=== PATIENT | male | born 1945 | race Caucasian/White ===

== ENCOUNTER 2022-12-24 08:18 | Inpatient (IN) | payer MEDICARE, OTHER ==
[~2022-12-24] VITALS: Ht 182.9 cm; Wt 88.5 kg
[2022-12-24] MEDS ORDERED: ASPIRIN E.C. 8181 MG PO (09:09)
[2022-12-24] MEDS ORDERED: NITROSTAT0.4 MG/TAB SL (09:09)
[2022-12-24] MEDS ORDERED: TOPROL XL 25MG25 MG PO (09:09)
[2022-12-24] MEDS ORDERED: SODIUM BICARBO650 MG PO (09:09)
[2022-12-24] MEDS ORDERED: PHOSPHA 250 NEU1 TAB PO (09:09)
[2022-12-24] MEDS ORDERED: TYLENOL 325MG325 MG PO (09:09)
[2022-12-24] MEDS ORDERED: ZOFRAN 4MG T4 MG/TAB PO (09:10)
[2022-12-24] MEDS ORDERED: IMODIUM 2MG CAPS2 MG PO (09:10)
[2022-12-24 11:07] VITALS: BP 152/67; PULSE 88; TEMP 97.8
[2022-12-24 17:20] VITALS: BP 127/67; PULSE 80; TEMP 98.3
--- NOTE | 2022-12-24 19:36 | NUR ---
RECEIVED CHANGE OF SHIFT REPORT FROM DAY SHIFT RN.
[2022-12-25 05:29] VITALS: BP 151/72; PULSE 67; TEMP 97.9
--- NOTE | 2022-12-25 07:06 | NUR ---
CHANGE OF SHIFT REPORT GIVEN TO DAY SHIFT RNKUN.
--- NOTE | 2022-12-25 09:57 | NUR ---
PATIENT ALERT AND ORIENTED X4. VSS. PATIENT HERE FOR FALLS. PATIENT DENIES ANY PAIN WITH THE EXCEPTION OF A SLIGHT HEADACHE. PATIENT REPORTS INABILITY TO SLEEP WELL LASTNIGHT AND ATTRIBUTES HEADACHE TO LACK OF SLEEP. PATIENT DENIES ANY FURTHER NEEDS. PATIENT RESTING IN CHAIR WAITING FOR BREAKFAST.
--- NOTE | 2022-12-25 13:45 | NUR ---
Has lack of transportation kept you from medical appts, meetings, work, or from getting things needed for daily living? NO How often do you feel lonely or isolated from those around you? RARELY Over the past 5 days, how much of the time has pain made it hard for you to sleep? NO PAIN Over the past 5 days, how often have you limited your participation in therapy due to pain? NO PAIN Over the past 5 days, how often have you limited your day-to-day activities because of pain? NO PAIN Have you had 2 or more falls in the past year or any fall with an injury? YES Did you have major surgery during the 100 days prior to admission? NO
--- NOTE | 2022-12-25 15:20 | NUR ---
SW met with the patient to complete intake and to present and review the IPR Team Conference Note. The patient lives in [place] with his , Charissa (ph#[phone]). He reports independence with ADLs and does not have any DME. The patient's PCP is Dr. Des Orlando and he obtains his medications from [facility]. The patient states he is unsure if he has a DPOA-HC. SW then addressed the IPR Team Conference Note. The team plans to re-evaluate him next Friday. The patient is in agreement to the plan and had no concerns for SW at this time.
[2022-12-25 18:14] VITALS: BP 158/70; PULSE 90; TEMP 98.1
--- NOTE | 2022-12-26 02:35 | NUR ---
PATIENT RESTING COMFORTABLY WHILE ASLEEP WITH UNLABORED RESPIRATIONS, PT DID STATE THROUGHOUT NIGHT THAT HAD A HEADACHE RATED AT A 3-4 OFFERED TYLENOL EACH TIME, PT REFUSED AND FALLS BACK ASLEEP. PATIENT ASSESSMENT DONE AT 2016 PATIETN ALERT AND ORIENTED. BRUSING NOTED ON FACE AND SIDE AND LEGS, SCAB ON RT AC AREA.
[2022-12-26 05:46] VITALS: BP 127/60; PULSE 85; TEMP 97.9
[2022-12-26 07:02] LABS: BASO % 0.3 % (0.0-2.0); EOS # 0.1 K/mm3 (0.0-0.7); EOS % 2.1 % (0.0-4.0); GRAN # 4.9 K/mm3 (1.4-6.5); GRAN % 73.4 % (42.2-75.2); LYMPH # 0.9 K/mm3 (1.2-3.4); LYMPH % 13.9 % (20.0-51.0); MEAN CELL VOLUME 90 fl (80.0-100.0); MEAN CORPUSCULAR HGB CONC 33 g/dl (33.0-37.0); MEAN PLATELET VOLUME 9.8 fl (7.4-10.4); MONO # 0.6 K/mm3 (0.1-0.6); MONO % 9.2 % (1.7-9.3); PLATELET COUNT 255 K/mm3 (130-400); RED BLOOD COUNT 2.51 M/mm3 (4.20-5.60); REDCELL DISTRIBUTION WIDTH-CV 14.3 % (11.5-14.5)
[2022-12-26 07:04] LABS: HEMATOCRIT 22.7 % (42.0-52.0); HEMOGLOBIN 7.5 g/dl (13.5-18.0); MEAN CORPUSCULAR HEMOGLOBIN 30 pg (27-31)
--- NOTE | 2022-12-26 07:04 | NUR ---
Shift report received from mini shifter RN.
[2022-12-26 07:19] LABS: CALCIUM 7.6 mg/dL (8.4-10.2); CREATININE, serum 3.94 mg/dL (0.72-1.25); POTASSIUM 3.1 mmol/L (3.5-4.5)
--- NOTE | 2022-12-26 07:57 | NUR ---
Pt awake and sitting up in bed. Denies pain/discomfort. Does not want to eat his breakfast this morning but is agreeable to try to eat some oatmeal and drink some coffee. Denies additional needs. Call light is in his reach. Bed alarm is on.
--- NOTE | 2022-12-26 08:38 | NUR ---
SBA provided as pt stood from recliner and transferred back to bed. Pt ate approx 20% of breakfast independently. 0900 medications refused. is at the bedside. Pt denies pain/discomfort. Denies toileting needs. Call light is in his reach. Bed alarm is on.
--- NOTE | 2022-12-26 12:11 | NUR ---
Pt incontinent of Lg, Loose stool while in Rehab [employer]. Pt back in room, hygiene performed. Min asst provided for lower body dressing. Pt denies abd. pain or nausea. Immodium given per PRN order. Pt sitting up in bed to eat lunch. Denies other needs. Call light is in his reach. Bed alarm is on.
--- NOTE | 2022-12-26 17:20 | NUR ---
Pt sitting up in bed to eat dinner. is the bedside. No further episodes of loose stools since earlier this afternoon. Pt continues to deny nausea or abd. pain. No general pain/discomfort. Call light is within his reach. Bed alarm is on.
[2022-12-26 18:09] VITALS: BP 168/73; PULSE 88; TEMP 98.2
--- NOTE | 2022-12-26 21:00 | NUR ---
PT AWAKE. RESTING IN BED. A&O. DENIES COUGH OR DYSPNEA. DENIES PAIN. NO NEEDS AT THIS TIME. CALL LIGHT IN REACH. BED ALARM SET.
--- NOTE | 2022-12-27 01:00 | NUR ---
PT HAS BEEN IMPULSIVE SEVERAL TIMES TO GO TO BATHROOM. REMINDED PT TO CALL STAFF TO SBA.
[2022-12-27 05:36] VITALS: BP 159/80; PULSE 105; TEMP 98.6
--- NOTE | 2022-12-27 07:10 | NUR ---
Shift report received from warehouse shift supervisor RN.
--- NOTE | 2022-12-27 08:32 | NUR ---
Pt sitting up in bed. Does not feel like eating breakfast this morning. Pt states he feels "like laying around today". OT in room to shower pt. Pt denies pain/discomfort. Denies other needs. Call light is in his reach.
--- NOTE | 2022-12-27 13:10 | NUR ---
Patient has been in a pleasant mood. States he has been more active than he wants to today. Up to go to the bathroom often. Urinating clear, yellow. Denies pain. Currently resting in bed with call light in reach.
--- NOTE | 2022-12-27 14:40 | NUR ---
Admission QIM scores were reviewed by the team. Code of 5 chosen for eating was determined by team discussion to be the most usual performance before interventions for this patient during the assessment period. Code of 3 chosen for toilet hygiene was determined by team discussion to be the most usual performance before interventions for this patient during the assessment period. Code of 3 chosen for toilet transfer was determined by team discussion to be the most usual performance before interventions for this patient during the assessment period. Code of 4 chosen for rolling left to right was determined by team discussion to be the most usual performance before interventions for this patient during the assessment period. Code of 3 chosen for sit to lying was determined by team discussion to be the most usual performance before interventions for this patient during the assessment period. Code of 4 chosen for lying to sitting on side of bed was determined by team discussion to be the most usual performance before interventions for this patient during the assessment period. Code of 2 chosen for sit to stand was determined by team discussion to be the most usual performance for this patient during the discharge assessment period. Code of 2 chosen for chair/bed to chair transfer was determined by team discussion to be the most usual performance before interventions for this patient during the assessment period. Code of 88 chosen for walk 10 feet was determined by team discussion to be the most usual performance for this patient during the discharge assessment period. Code of 88 chosen for walk 50 feet w/ 2 turns was determined by team discussion to be the most usual performance before interventions for this patient during the assessment period. Code of 88 chosen for 1 step was determined by team discussion to be the most usual performance before interventions for this patient during the assessment period.--Chiara Morillo,
[2022-12-27 18:00] VITALS: BP 159/78; PULSE 91; TEMP 99.4
--- NOTE | 2022-12-27 20:00 | NUR ---
PT RESTING IN BED. AT BEDSIDE. PT FORGETFUL BUT ORIENTED. IMPULSIVE WITH GETTING UP OUT OF BED TO GO TO BR. FREQUENT VOIDS. NORMAL FOR HIM. DENIES PT HAS A PCP. DENIES PAIN. CALL LIGHT IN REACH. BED ALARM SET.
--- NOTE | 2022-12-28 03:34 | NUR ---
PT AWAKE AND RESTLESS TONIGHT. VOIDING FREQUENTLY ALSO. DENIES PAIN.
--- NOTE | 2022-12-28 04:03 | NUR ---
PT SITTING UP; ON SIDE OF BED. BED ALARM SOUNDING. PT UNABLE TO UNDERSTAND THE BED ALARM. ENC PT TO USE CALL LIGHT AND STAFF WILL COME TO ASSIST BEFORE GETTING UP. PT VERY AGRIVATED. ASSISTED TO STAND. PT WANTS PANTS AND SOCKS OFF TO SLEEP. BACK TO BED. CALL LIGHT IN REACH. BED ALARM ON.
[2022-12-28 04:43] VITALS: BP 158/72; PULSE 100; TEMP 98.8
--- NOTE | 2022-12-28 07:13 | NUR ---
Shift report received from second shift supervisor RN.
--- NOTE | 2022-12-28 07:53 | NUR ---
SBA provided as pt ambulated to the bathroom using a FWW. Morning medications declined by the pt. Pt stated "I don't need those". Pt denies pain/discomfort. Denies abd. pain or nausea. Pt supervised as he returned to bed. Denies other needs. Call light is in his reach. Bed alarm is on.
--- NOTE | 2022-12-28 09:58 | NUR ---
Breakfast refused. Group Therapy refused. Pt resting in left side lying position in bed. Arouses easily from sleep. Denies pain or discomfort. Call light is in his reach. Bed alarm is on.
[2022-12-28 17:19] VITALS: BP 177/76; PULSE 96; TEMP 98.8
--- NOTE | 2022-12-28 18:14 | NUR ---
Pt resting supine in bed. is at the bedside. Pt ate 10-25% of lunch and dinner today. No c/o abd. pain or nausea. Pt had one medium loose stool this afternoon. Denies general pain or discomfort. Pt has expressed frustration with his bed alarm sounding when he attempts to get out of bed without calling for help. Reminded pt of the Fall Policy and to ask for help when getting out of bed. Denies other needs. Call light is in his reach. Bed alarm is on.
--- NOTE | 2022-12-28 18:42 | NUR ---
NOTIFIED NICKOLAS MARTINEZ RE: RESTLESSNESS AND AGITATION. SEE NEW ORDER.
--- NOTE | 2022-12-28 21:00 | NUR ---
PT RESTING IN BED. HERE EARLIER. VERY SUPPORTIVE. PT DENIES PAIN. FORGETFUL AND IMPULSIVE. SEEMS DEPRESSED. GETS AGITATED AT TIMES. PT DOES NOT USE CALL LIGHT. PT SITS UP AND ALARM SOUNDS WHICH MAKES PT AGITATED. UP TO BR WITH WALKER. ABLE TO MANAGE TOILETING TASKS. BACK TO BED. LIFTS LEGS INTO BED. REFUSES SCD'S. CLALL IHG TIN REACH. BED ALARM SET.
[2022-12-29 05:19] VITALS: BP 155/83; PULSE 104; TEMP 98.8
--- NOTE | 2022-12-29 08:00 | NUR ---
PATIENT AWAKE AND ALERT, RESTING IN BED. PATIENT IS VERY PLEASANT AND COOPERATIV WITH NURSING STAFF. PATIENT REFUSES BREAKFAST AT THIS TIME, STATES HE IS NOT HUNGRY. PATIENT DECLINED GETTING INTO RECLINER AND WOULD LIKE TO SLEEP MORE IN BED. BED ALARM ON, CALL LIGHT WITHIN REACH.
[2022-12-29 09:55] LABS: CALCIUM 7.8 mg/dL (8.4-10.2); CREATININE, serum 3.78 mg/dL (0.72-1.25); POTASSIUM 3.4 mmol/L (3.5-4.5)
--- NOTE | 2022-12-29 11:30 | NUR ---
TOTAL BED CHANGE COMPLETE. PATIENT HAD ONE INCONTINENT EPISODE OF BOWL. PATIENT ASSISTED TO BATHROOM WHERE HE WAS ABLE TO CLEAN UP INDEPENDTLY WITH RN STANDING BY. PATIENT A STANDBY ASSIST BACK TO BED WITHA WALKER. PATIENTS BED ALARM ON, CALL LIGHT WITHIN REACH.
[2022-12-29 17:22] VITALS: BP 164/75; PULSE 85; TEMP 98.7
--- NOTE | 2022-12-30 00:12 | NUR ---
PT. CAN BE FORGETFUL, HAS URGENCY WHEN NEEDING TO URINATE, AND FREQUENTLY FORGETS TO USE HIS CALL LIGHT WHEN HE NEEDS TO GO TO THE BATHROOM, PT.'S BED ALARM WENT OFF, AND I WENT IN TO ASSIST HIM TO THE BATHROOM, PT. STABLE WHILE USING WALKER, AND MADE IT TO THE BATHROOM AND BACK SAFELY, REINFORCED THAT HIS CALL LIGHT IS ON HIS BEDSIDE TABLE, AND THAT HE NEEDS TO PUSH IT WHEN HE NEEDS TO GO, INSTEAD OF TRYING TO GET UP WITHOUT HELP, WILL CONTINUE TO MONITOR.
[2022-12-30 05:27] VITALS: BP 141/67; PULSE 90; TEMP 97.4
--- NOTE | 2022-12-30 09:13 | NUR ---
pt down w Theodore in PT
--- NOTE | 2022-12-30 09:52 | NUR ---
pt resting in bed, just finished with PT. reports feeling tired. meds given and assessment complete. fall precautions in place. denies needs at this time. call light in reach.
[2022-12-30 17:44] VITALS: BP 134/59; PULSE 80; TEMP 98
--- NOTE | 2022-12-31 04:55 | NUR ---
PT ASSESSED AT 2035 ALERT AND ORIENTED, RESTING IN BED IN LOWEST POSITION WITH FALL ALARM ON. PATIENT HAD NO PAIN AT THIS TIME. PATIENT RESTED COMFORTABLY WHILE SETTING OFF FALL ALARM X3 OVER NIGHT TO USE RESTROOM. PT WOULD RETURN TO BED WIITH ALARM SET RESTING COMFORABLY.
[2022-12-31 05:41] VITALS: BP 159/75; PULSE 93; TEMP 98.2
--- NOTE | 2022-12-31 07:01 | NUR ---
Shift report received from host/hostess RN.
--- NOTE | 2022-12-31 10:34 | NUR ---
Phone call received from patients concerned that she received a phone call from her yesterday stating that a "lady from [employer] came to vist him yesterday" and that he could only describe her as a " little girl". SW assured patients that the hospital does not let any insurance company visit patients while here, but that i would discuss with the IPR director to investigate. Kristina reports that she will be up to visit her after 1400 due to scheduled appointments this morning. IPR director Rosy notified
--- NOTE | 2022-12-31 12:34 | NUR ---
Pt sitting up in the recliner talking to his on the phone. He ate approx 10% of lunch independently, breakfast was refused. He denies abd. pain or nausea. Denies general pain/discomfort. Call light is in his reach. Chair alarm is on.
[2022-12-31 17:35] VITALS: BP 129/60; PULSE 83; TEMP 98.4
--- NOTE | 2023-01-01 04:15 | NUR ---
PT ASSESSED AT 1946 WITH AT BEDSIDE. PT RESTING COMFORTABLY IN BED VSS, NO COMPLAINT OF PAIN, PTS NIGHT TIME MEDS ALSO GIVEN, OFFERED SEOQUEL BUT PT DECLINED.
[2023-01-01 05:08] VITALS: BP 133/61; PULSE 79; TEMP 98.8
[2023-01-01 07:05] LABS: BASO % 0.8 % (0.0-2.0); EOS # 0.1 K/mm3 (0.0-0.7); EOS % 1.9 % (0.0-4.0); GRAN # 2.9 K/mm3 (1.4-6.5); GRAN % 60.1 % (42.2-75.2); LYMPH # 1.2 K/mm3 (1.2-3.4); LYMPH % 24.5 % (20.0-51.0); MEAN CELL VOLUME 92 fl (80.0-100.0); MEAN CORPUSCULAR HGB CONC 33 g/dl (33.0-37.0); MEAN PLATELET VOLUME 9.9 fl (7.4-10.4); MONO # 0.6 K/mm3 (0.1-0.6); MONO % 12.3 % (1.7-9.3); PLATELET COUNT 167 K/mm3 (130-400); RED BLOOD COUNT 2.61 M/mm3 (4.20-5.60); REDCELL DISTRIBUTION WIDTH-CV 13.7 % (11.5-14.5)
[2023-01-01 07:06] LABS: HEMOGLOBIN 7.8 g/dl (13.5-18.0); MEAN CORPUSCULAR HEMOGLOBIN 30 pg (27-31)
--- NOTE | 2023-01-01 07:07 | NUR ---
Shift report received from warehouse worker 2nd shift RN.
[2023-01-01 07:19] LABS: CREATININE, serum 3.46 mg/dL (0.72-1.25); POTASSIUM 3.3 mmol/L (3.5-4.5)
--- NOTE | 2023-01-01 09:15 | NUR ---
Pt back in room after PT. He is sitting up in the recliner. Denies pain or discomfort. Denies nausea or abd. pain. Pt denies other needs. Call light is in his reach. Chair alarm is on.
[2023-01-01 17:27] VITALS: BP 166/81; PULSE 90; TEMP 98.3
--- NOTE | 2023-01-01 20:00 | NUR ---
PT HAS SET THE BED ALARM OFF TWICE. PT FRUSTRATED WITH BED ALARM. PT DOESN'T REMEMBER TO USE CALL LIGHT. SHIFT ASSESSMENT COMPLETED. ACCORDING TO K+ PROTOCOL K+ NEEDS TO BE DRAWN 3HR POST LAST DOSE EFFER K. ORDERED K+ FOR 2029. PT TO SINK TO DO OWN MOUTH CARE. BACK TO BED. CALL LIGHT IN REACH. BED ALARM SET.
--- NOTE | 2023-01-01 21:38 | NUR ---
PT CONFUSED TONIGHT. HAS SET OFF BED ALARM AT LEAST 6-7 TIMES IN THE LAST HOUR. REVIEWED CALL LIGHT- [place], WAIT TILL STAFF COMES IN BEFORE GETTING UP EACH TIME PT GETS UP. PT VERY AGITATED. AFTER REVIEWING CALL LIGHT AND BED ALARM PT ASKS "WHAT CAN WE DO TO STOP THE NOISE WHEN I GET UP TO THE BR?".
--- NOTE | 2023-01-01 21:58 | NUR ---
PT STILL VERY AGITATED ABOUT BED ALARM. FOLLOW UP K+ 3.6. PT REFUSING EFFER K PER PROTOCOL. NOTIFIED RL MARTINEZ.
--- NOTE | 2023-01-01 23:58 | NUR ---
BED ALARM SOUNDING. PT CONFUSED WHY ALARM IS ON. ASSTED TO BR WITH WHEELED WALKER. BACK TO BED. CALL LIGHT IN REACH. BED ALARM SET.
--- NOTE | 2023-01-02 01:14 | NUR ---
BED ALARM SOUNDING. PT SITTING ON SIDE OF BED. ASSISTED PT TO BR SBA W WALKER. BACK TO BED. CALL LIGHT IN REACH. BED ALARM SET.
--- NOTE | 2023-01-02 04:14 | NUR ---
BED ALARM SOUNDING. SITTING ON SIDE OF BED. SBA WITH WALKER TO BR. BACK TO BED.
[2023-01-02 05:32] VITALS: BP 158/74; PULSE 91; TEMP 97.8
--- NOTE | 2023-01-02 06:45 | NUR ---
shift report received from MANUEL Riddle
--- NOTE | 2023-01-02 07:05 | NUR ---
attempted to give him his am meds and he refuses at this time, he states he didn't get any sleep last night and wants to sleep, declines breakfast also, made agreement with him that he could sleep until 815 then would wake him for meds and assessment before therapy at 830, he is in agreement with this
--- NOTE | 2023-01-02 08:05 | NUR ---
awakened independently and sitting up on side of bed and has had some breakfast, am meds given and full assessment compelted, see interventions for further info, denies needs at this time
--- NOTE | 2023-01-02 08:43 | NUR ---
occupational therapist in working with patient
--- NOTE | 2023-01-02 09:00 | NUR ---
returned to room with therapy, family in to visit and have family meeting
--- NOTE | 2023-01-02 09:35 | NUR ---
Family meeting conducted w/ pt, , son, & [id number]. Also present was the PT, OT, ST, & institutional research director/SW. The team talked about how pt has progressed from a functional standpoint. Pt & family stated they understood & agreed w/. Informed them of d/c still being set for 01/03/23 w/ recommendations for home health PT/OT/ST. The family had a few questions which the team answered.
--- NOTE | 2023-01-02 11:29 | NUR ---
remains up in recliner, denies needs
--- NOTE | 2023-01-02 12:30 | NUR ---
Late Entry from 01-01-23 Candy Wrapping Machine Operator collaborated with treatment team in the AM to conduct a case review for Patient referencing treatment progress, needs, barreiers, and discharge. Patient is assessed to be progressing with treatment. Needs: Patient will need to be established with Home health services prior to discahrge. Home Health list of providers were provided to Patient, two of which can meet Patient needs for PT/OT/ST. Pstient would like to wait until Family Meeting to select Home Health Provider. Walker: Patient will need a walker prior to discharge. Barriers: No barriers assessed at this time. Discharge: Anticipated discharge date of 01-03-23. Request for family meeting 01-02-23 at 0930 Candy Wrapping Machine Operator met with Patient and to review treatment team notes. SW collaborated with Patient and to review progress referencing evaluation as well s current assessed activities for treatment. Family meeting scheduled for 01-02-23 at 0915.
--- NOTE | 2023-01-02 12:35 | NUR ---
chair alarm sounding, entered room, assisted him out of recliner and into bed to take a nap before afternoon t herapy
--- NOTE | 2023-01-02 14:09 | NUR ---
Has lack of transportation kept you from medical appts, meetings, work, or from getting things needed for daily living? NO How often do you feel lonely or isolated from those around you? NEVER Over the past 5 days, how much of the time has pain made it hard for you to sleep? RARELY OR NOT AT ALL Over the past 5 days, how often have you limited your participation in therapy due to pain? RARELY OR NOT AT ALL Over the past 5 days, how often have you limited your day-to-day activities because of pain? RARELY OR NOT AT ALL
--- NOTE | 2023-01-02 14:24 | NUR ---
director social in to see patient, the patient is in bed and ready to try and take anap
--- NOTE | 2023-01-02 15:19 | NUR ---
Meeting Facilitator collaborated with Dr. Graham to complete DME order. completed packet was sent to [facility] with a request for delivery to Patient's room today. Meeting Facilitator met with Patient, , and son post family meeting to discuss home health providers as well as DME required for discharge. SW reported to family that DME, 4WW was ordered and requested to arrive by end of day. SW reviewed provided home health list with family who selected [facility] home health service as they provide PT/OT/ST. SW will follow referral. KADEN contacted PCP office [facility] on Patient's request for new PCP. [facility] reports to accept Patient and requests Patient contact them to provide all information neccisary for establishing PCP.
--- NOTE | 2023-01-02 15:51 | NUR ---
in bed and appears to be sleeping, resp quiet and easy
--- NOTE | 2023-01-02 16:15 | NUR ---
report given to MANUEL Mathews
[2023-01-02 17:29] VITALS: BP 163/80; PULSE 76; TEMP 98.1
--- NOTE | 2023-01-02 21:00 | NUR ---
BED ALARM SOUNDING. PT UP IN BR PER SELF. REFUSING TO USE CALL LIGHT. DENIES PAIN. HAD BM TODAY. DENIES NEEDS. CALL LIGHT IN REACH. BED ALARM SET.
[2023-01-03 05:34] VITALS: BP 134/62; PULSE 84; TEMP 98.3
--- NOTE | 2023-01-03 06:41 | NUR ---
Shift report received from shelter supervisor RN.
--- NOTE | 2023-01-03 08:18 | NUR ---
Pt resting in left side lying position in bed. He is independent w/ bed mobility. Breakfast was eaten independently. He is looking forward to discharging home later this morning. He denies pain or discomfort. Denies other needs. Call light is in his reach. Bed alarm is on.
[2023-01-03] MEDS ORDERED: FERRO-TIME325 MG PO (09:05)
[2023-01-03] MEDS ORDERED: TOPROL XL 25MG25 MG PO (09:06)
[2023-01-03] MEDS ORDERED: NITROSTAT0.4 MG/TAB SL (09:06)
[2023-01-03] MEDS ORDERED: ASPIRIN E.C. 8181 MG PO (09:06)
[2023-01-03] MEDS ORDERED: PHOSPHA 250 NEU1 TAB PO (09:06)
[2023-01-03] MEDS ORDERED: SODIUM BICARBO650 MG PO (09:07)
--- NOTE | 2023-01-03 12:17 | NUR ---
Pt sitting up on the side of the bed. He reports that he "kind of does not feel well". He reports having slight left sided chest pain "a bit ago" and denies chest pain currently. Denies shortness of breath, chest tightness, difficulty breathing. Denies abd. pain, nausea when asked if he thought his Crohn's hx was causing discomfort. Pt denied Zofran and denied Nitroglycerin. Pt stated the Nitroglycerin "never works anyway" and "I'm the big baby that doesn't like to take medicine". Advised to pt to notify the nurse if his chest pain returns. Will continue to monitor.
--- NOTE | 2023-01-03 12:22 | NUR ---
Staffing R[facility]. Patient requested to schedule home health themselves. Carolina agreed to contact Patient to schedule first appointment. KADEN follow-ed up with Patient to ensure delivery of 4WW from [facility]. Patient recieved walker last evening.
--- NOTE | 2023-01-03 12:39 | NUR ---
Pt resting supine in bed. He denies chest pain, shortness of breath, chest tightness, abd. pain, or nausea. He is still waiting for his to arrive for his discharge. Pt denies any needs. Call light is in his reach. Bed alarm is on. Will continue to monitor.
--- NOTE | 2023-01-03 12:48 | NUR ---
Tank Setter contacte Patient , Charissa, to report updates with PCP at [facility]. Patient states that Charissa can coordinate PCP for him. Charissa states that she now does not want Patient to see Tamir Grayson. Patient reports that after speaking with Carolina , she [facility] SW contacted [facility] in reference to continued non-established PCP. Lawrence with [facility] agreed to speak with her team to work with Patient in establishing PCP.
--- NOTE | 2023-01-03 13:23 | NUR ---
Discharge summary reviewed with the pt and his . Discussed upcoming appointments and home medications. They had no further questions. Belongings were gathered by the . Pt ambulated off unit with rolling walker accompanied by RN and professional nursing tutor.
--- NOTE | 2023-01-03 13:44 | NUR ---
Discharge QIM scores were reviewed by the team. Code of 6 chosen for toilet hygiene was determined by team discussion to be the most usual performance for this patient during the discharge assessment period. Code of 6 chosen for toilet transfer was determined by team discussion to be the most usual performance for this patient during the discharge assessment period. Code of 6 chosen for walk 10 feet was determined by team discussion to be the most usual performance for this patient during the discharge assessment period. Code of 6 chosen for walk 50 feet w/ 2 turns was determined by team discussion to be the most usual performance before interventions for this patient during the discharge assessment period. Code of 6 chosen for walk 150 feet was determined by team discussion to be the most usual performance for this patient during the discharge assessment period. Code of 6 chosen for walk 10 feet on uneven surface was determined by team discussion to be the most usual performance for this patient during the discharge assessment period. Code of 6 chosen for 1 step was determined by team discussion to be the most usual performance for this patient during the discharge assessment period.--Chiara Morillo, PD
--- NOTE | 2023-01-03 14:49 | NUR ---
Neurology Technologist faxed sischarge packet to [facility].
== END 2023-01-03 13:30 | disposition home health service (06) | DRG 557 ==
PROVIDERS: Internal Medicine; ADMIT Physical Medicine & Rehabilitation Sports Medicine
DX: M62.82 Rhabdomyolysis (principal); I21.A1 Myocardial infarction type 2; G93.40 Encephalopathy, unspecified; K50.90 Crohn's disease, unspecified, without complications; N17.9 Acute kidney failure, unspecified; M62.81 Muscle weakness (generalized); S09.90XD Unspecified injury of head, subsequent encounter; W06.XXXD Fall from bed, subsequent encounter; R26.89 Other abnormalities of gait and mobility; D64.89 Other specified anemias; M79.81 Nontraumatic hematoma of soft tissue; R19.7 Diarrhea, unspecified; M25.551 Pain in right hip; E87.6 Hypokalemia; R79.1 Abnormal coagulation profile; Z86.16 Personal history of COVID-19; Z74.09 Other reduced mobility; Z79.899 Other long term (current) drug therapy; Z79.82 Long term (current) use of aspirin; R15.9 Full incontinence of feces
CPT/HCPCS: A9284

== ENCOUNTER 2023-09-30 17:23 | Inpatient (IN) | payer MEDICARE, OTHER ==
[~2023-09-30] VITALS: Ht 182.9 cm; Wt 89.6 kg
[~2023-09-30 17:23] MED LIST: ASPIRIN E.C. 8181 MG PO; FERRO-TIME325 MG PO; IMODIUM 2MG CAPS2 MG PO; NITROSTAT0.4 MG/TAB SL; PHOSPHA 250 NEU1 TAB PO; SODIUM BICARBO650 MG PO; TOPROL XL 25MG25 MG PO; TYLENOL 325MG325 MG PO; ZOFRAN 4MG T4 MG/TAB PO
[2023-09-30 18:18] LABS: BASO # 0.1 K/mm3 (0.0-0.2); BASO % 0.8 % (0.0-2.0); EOS % 0.5 % (0.0-4.0); GRAN # 5.8 K/mm3 (1.4-6.5); GRAN % 75.1 % (42.2-75.2); HEMATOCRIT 42.2 % (42.0-52.0); HEMOGLOBIN 14.5 g/dl (13.5-18.0); LYMPH # 1.2 K/mm3 (1.2-3.4); LYMPH % 15.4 % (20.0-51.0); MEAN CELL VOLUME 85 fl (80.0-100.0); MEAN CORPUSCULAR HEMOGLOBIN 29 pg (27-31); MEAN CORPUSCULAR HGB CONC 34 g/dl (33.0-37.0); MEAN PLATELET VOLUME 9.5 fl (7.4-10.4); MONO # 0.6 K/mm3 (0.1-0.6); MONO % 7.8 % (1.7-9.3); PLATELET COUNT 236 K/mm3 (130-400); RED BLOOD COUNT 4.96 M/mm3 (4.20-5.60)
[2023-09-30 18:35] LABS: ALBUMIN 3.5 gm/dL (3.4-4.8); BILIRUBIN,TOTAL 0.9 mg/dL (0.2-1.2); CREATININE, serum 1.85 mg/dL (0.72-1.25); POTASSIUM 3.3 mmol/L (3.5-4.5)
[2023-09-30] MEDS ORDERED: COMBIGAN 0.2%-0.5 ML OU (19:19)
[2023-09-30] MEDS ORDERED: XALATAN EYE DROPS OU (19:19)
[2023-09-30 19:23] LABS: INR 1.1 (0.8-3.0); PROTHROMBIN TIME 11.9 SECONDS (9.7-12.8)
[2023-09-30 20:19] VITALS: BP 158/65; PULSE 62; TEMP 97.8
--- NOTE | 2023-09-30 20:20 | NUR ---
pt arrived to room 345 around 1999. pt a&o x4. admission, med rec, and physical assessment complete. pt denies pain unless moving the rle. family at bedside. bed alarm on. call light in reach. all needs met at this time.
[2023-09-30 21:00] VITALS: BP_SYST 158
[2023-09-30 22:26] LABS: COLLECTION METHOD CLEAN CATCH
[2023-09-30 22:44] LABS: URINE APPEARANCE Clear (CLEAR/HAZY); URINE COLOR Yellow (YELLOW); URINE GLUCOSE Negative (NEGATIVE); URINE PROTEIN(semi-quant) Negative (NEGATIVE)
[2023-09-30 22:45] LABS: SQUAMOUS EPITHELIAL 0-2 /hpf (0-10); URINE BACTERIA Moderate /hpf (NONE SEEN); URINE BLOOD Negative (NEGATIVE); URINE KETONE TRACE (NEGATIVE); URINE NITRATE Negative (NEGATIVE); URINE RBC 0-2 /hpf (0-2); URINE UROBILINOGEN 0.2 E.U/dL (0.2-1.0)
[2023-10-01] VITALS (19 sets, daily range): BP systolic 129–182; BP diastolic 64–90; PULSE 55–78; TEMP 97.5–98.4
--- NOTE | 2023-10-01 03:15 | NUR ---
pt accidentally pulled right ac iv out. new iv site placed in left forearm. pt tolerated well. ivf now running without issue. call light in reach. all needs met at this time.
--- NOTE | 2023-10-01 05:37 | NUR ---
pt ripped out newly placed iv. iv attempts did not work. waiting for powerhouse mechanic supervisor to place new iv. pt tolerated well. bed alarm on. call light in reach. all needs met at this time.
[2023-10-01 06:43] LABS: BASO % 0.5 % (0.0-2.0); EOS # 0.1 K/mm3 (0.0-0.7); EOS % 1.4 % (0.0-4.0); GRAN # 6.6 K/mm3 (1.4-6.5); GRAN % 74.1 % (42.2-75.2); HEMATOCRIT 40.6 % (42.0-52.0); HEMOGLOBIN 13.9 g/dl (13.5-18.0); LYMPH # 1.2 K/mm3 (1.2-3.4); LYMPH % 13.3 % (20.0-51.0); MEAN CELL VOLUME 84 fl (80.0-100.0); MEAN CORPUSCULAR HEMOGLOBIN 29 pg (27-31); MEAN CORPUSCULAR HGB CONC 34 g/dl (33.0-37.0); MEAN PLATELET VOLUME 10.1 fl (7.4-10.4); MONO # 0.9 K/mm3 (0.1-0.6); MONO % 10.5 % (1.7-9.3); PLATELET COUNT 246 K/mm3 (130-400); RED BLOOD COUNT 4.81 M/mm3 (4.20-5.60); REDCELL DISTRIBUTION WIDTH-CV 13.5 % (11.5-14.5)
[2023-10-01 06:59] LABS: ALBUMIN 3.4 gm/dL (3.4-4.8); BILIRUBIN,TOTAL 1.2 mg/dL (0.2-1.2); CALCIUM 8.8 mg/dL (8.4-10.2); CREATININE, serum 1.71 mg/dL (0.72-1.25); POTASSIUM 3.2 mmol/L (3.5-4.5); TOTAL PROTEIN 6.6 gm/dL (6.2-8.1)
--- NOTE | 2023-10-01 10:29 | NUR ---
Initial visit; Patient thanked Bankruptcy Legal Assistant for stopping and visiting. He states he is to have surgery today and thanked Bankruptcy Legal Assistant for keeping him in her prayers and offering God's blessings this morning.
[2023-10-01] MEDS ORDERED: CYANOCOBAL1000 MCG/1 SQ (10:49)
--- NOTE | 2023-10-01 11:17 | NUR ---
PATIENT ALERT TO SELF AND INTERMITTENTLY CONFUSED TO TIME/PLACE/SITUATION. PATIENT HAS REMOVED 4 IV'S AND ATTEMPTING TO GET OUT OF BED MULTIPLE TIMES. PATIENT ORIENTED TO PLACE AND SITUATION AFTER EVERY ATTEMPT TO LEAVE BED. PATIENT REMINDED THAT HE IS NPO, ON BEDREST FOR UPCOMING SURGERY AND IV CANNOT BE REMOVED. ORAL POTASSIUM GIVEN WITH A SIP OF WATER. NEW IV STARTED IN RIGHT FA, IV MAG ADMINISTERED. IV WRAPPED WITH MARIELA BANDAGE. IV MORPHINE ADMINISTERED ALONG WITH ONE TIME DOSE OF 0.5MG ATIVAN. PATIENT RESTING IN BED. CALL LIGHT IN REACH, BED ALARM ON.
--- NOTE | 2023-10-01 12:56 | NUR ---
Station Installer And Repairer met with patient to discuss discharge planning. Patient will have surgery on his hip once medically cleared. Patient's family is at bedside including his Charissa (ph#[phone]), son Yogesh (ph#[phone]), and daughter Eduarda. Patient lives in [place] and sees TRACY Calvin at [facility] for primary care. Patient obtains medications from [facility] and advised he is able to drive himself to medical appointments and to the Ft to sweet pickled fruit maker medications. Patient does not normally use any DME and is independent ADLS. Charissa did remark that patient had recent difficulty getting out of their tub, which required quite a bit of assistance. Patient advised his , Charissa is DPOA-HC. SW discussed the possibility of post acute rehab following surgery and reviewed options including SNF, SWB, and IPR. Charissa advised patient has been to IPR before and that would be their first preference. Charissa is agreeable to have SW give referral in advance. KADEN contacted LORRAINE Guadarrama Director to give referral. Discharge Plan: IPR Screen
--- NOTE | 2023-10-01 13:55 | NUR ---
PATIENT OFF OF FLOOR FOR SURGERY
--- NOTE | 2023-10-01 16:25 | NUR ---
PATIENT TO FLOOR AT APPROXIMATELY 1615. POST OP VITALS RUNNING. PATIENT ON 2L NC. POST OP FLUIDS RUNNING INTO RIGHT FA. SURGICAL SITE TO RLE WITH GAUZE/TEGADERM INTACT, CDI. PATIENT VERY DROWSY BUT AROUSABLE. FAMILY WITH PATIENT IN ROOM. CALL LIGHT IN REACH.
--- NOTE | 2023-10-01 19:23 | NUR ---
report received from abbey miller. pt resting in bed with at bedside. pt did not eat much for dinner d/t lethargy from surgery. pt denies pain. post op vitals continue wnl. bed alarm on. call light in reach. all needs met at this time.
--- NOTE | 2023-10-01 20:15 | NUR ---
shift assessment complete, see documentation. pt continues to deny pain. pt tolerated hs meds well. pt off post op vitals. pt now resting in bed and watching tv. bed alarm on. call light in reach. all needs met at this time.
--- NOTE | 2023-10-01 23:32 | NUR ---
pt has not voided since surgery at 1600. pt denies the urge. pt bladder scanned with 500ml. per milagros sloan, tafoya catheter placed. 500ml out through tafoya. pt tolerated procedure well. yellow, clear urine noted. pt denies pain or discomfort.
[2023-10-02] VITALS (12 sets, daily range): BP systolic 129–170; BP diastolic 75–82; PULSE 62–72; TEMP 97.7–98.2
--- NOTE | 2023-10-02 04:26 | NUR ---
pt having increased bp. pt asymptomatic. pt refused prn hydralazine and stated "i just need to calm down and it will come down". pt upset about his room neighbors being noisy. educated pt on necessary measures to decrease blood pressure. pt provided understanding. call light in reach. bed alarm on. all needs met at this time.
[2023-10-02 06:23] LABS: HEMATOCRIT 38.9 % (42.0-52.0); HEMOGLOBIN 13.6 g/dl (13.5-18.0); MEAN CELL VOLUME 84 fl (80.0-100.0); MEAN CORPUSCULAR HEMOGLOBIN 29 pg (27-31); MEAN CORPUSCULAR HGB CONC 35 g/dl (33.0-37.0); PLATELET COUNT 251 K/mm3 (130-400); RED BLOOD COUNT 4.62 M/mm3 (4.20-5.60); REDCELL DISTRIBUTION WIDTH-CV 13.4 % (11.5-14.5)
[2023-10-02 06:39] LABS: CALCIUM 9.1 mg/dL (8.4-10.2); CREATININE, serum 1.89 mg/dL (0.72-1.25); POTASSIUM 3.6 mmol/L (3.5-4.5)
[2023-10-02 08:26] LABS: BAND 15 % (0-10); NEUTROPHILS 76 % (42.0-75.2)
[2023-10-02 08:27] LABS: LYMPHOCYTE 4 % (20.0-51.0)
[2023-10-02 08:28] LABS: PLATELET ESTIMATE NORMAL (NORMAL)
--- NOTE | 2023-10-02 08:35 | NUR ---
PATIENT ALERT AND ORIENTED X2, WITH INTERMITTENT CONFUSION. IV TO RIGHT FA INT AND FLUSHES WELL. DRESSING TO RLE CDI WITH GAUZE/TEGADERM. PATIENT EATING BREAKFAST IN BED, CASTILLO TO DD WITH MELISSA OUTPUT. PATIENT DENIES PAIN, PREFERS SCHEDULED TYLENOL. NO FURTHER NEEDS. CALL LIGHT IN REACH. BED ALARM ON.
--- NOTE | 2023-10-02 10:15 | NUR ---
THIS NURSE CALLED TO PATIENT'S ROOM. PATIENT HAD PULLED OUT CASTILLO CATHETER. PATIENT BLEEDING. GAUZE APPLIED TO TIP OF PENIS. GAUZE SATURATED PRETTY QUICKLY. CALLED DR. WORTHINGTON TO NOTIFY OF SITUATION. ORDERED TO CONSULT UROLOGY. CALLED. DR. VILLA, INSTRUCTED TO PLACE A CASTILLO IN PATIENT AND MONITOR, NO FURTHER INTERVENTION NEEDED. CONSULT VIJI WORTHINGTON AND TRACY DONIS AWARE OF SITUATION. PATIENT CONFUSED AT BASELINE. FAMILY AND PATIENT EDUCATED ON THE NEED TO LEAVE CASTILLO CATHETER IN PLACE.
--- NOTE | 2023-10-02 12:55 | NUR ---
16F CASTILLO CATHETER PLACED. PATIENT TOLERATED. BLOODY URINE WITH SOME CLOTS. URINE FLOW RECEIVED. PATIENT ENCOURAGED TO INCREASE PO INTAKE.
--- NOTE | 2023-10-02 16:47 | NUR ---
PATIENT GIVEN PRN MED FOR ANXIETY. PATIENT CONTINUES TO PULL AT CASTILLO CATHETER. IN ROOM WITH PATIENT, REMINDING PATIENT TO LEAVE CASTILLO CATHETER ALONE. PATIENT GROWING INCREASINGLY VERBALLY AGGRESSIVE. PCT TOLD THIS NURSE THAT PATIENT HAD TUBING FROM CATHETER COILED AROUND HAND AND READY TO PULL IT OUT. PATIENT REMINDED WHAT CASTILLO CATHETER IS FOR AND TO LEAVE IT BE. DR WORTHINGTON AWARE, NOT WANTING TO PLACE MITTS ON PATIENT. NO NEW ORDERS.
--- NOTE | 2023-10-02 16:55 | NUR ---
DR. WORTHINGTON AWARE OF SITUATION. NO NEW ORDERS.
--- NOTE | 2023-10-02 18:55 | NUR ---
resting in bed with at bedside, telesitter in room and on, bedside shift report received from MANUEL Mckeon
--- NOTE | 2023-10-02 19:30 | NUR ---
attempting to get up, wants to stand and move aorund, assited out of bed, ambulates around room and then back to bed
--- NOTE | 2023-10-02 20:21 | NUR ---
full assessment completed, see interventions for further info, is currently not pulling at catheter or INT, given HS meds and takes without difficulty, has large amount dried blood around meatus and scrotum, area cleaned with warm cloth,
--- NOTE | 2023-10-02 22:00 | NUR ---
appears to be sleeping, in bed with lights off, eyes closed, resp quiet and easy, tafoya draining viola urine that is clear ing in tubing
--- NOTE | 2023-10-02 23:09 | NUR ---
is awake and wanting to get out of bed and take a walk, he wants to see who is out here, attempted to reorient and tell him there is nobody else but he thinks we are lying, will take a short walk with ZIPPER MEASURER
--- NOTE | 2023-10-02 23:34 | NUR ---
back in bed and appears to be dozing
[2023-10-03] VITALS (8 sets, daily range): BP systolic 123–170; BP diastolic 69–81; PULSE 70–76; TEMP 98.3–98.6
--- NOTE | 2023-10-03 01:00 | NUR ---
in bed and awake at intervals,
--- NOTE | 2023-10-03 01:41 | NUR ---
again now appears to be sleeping, eyes closed, resp quiet and easy
--- NOTE | 2023-10-03 02:45 | NUR ---
continues to appear to sleep
--- NOTE | 2023-10-03 04:52 | NUR ---
awake and trying to get up for a up of coffee, reminded him to stay in bed and coffee provided
--- NOTE | 2023-10-03 05:10 | NUR ---
called in saying he called her and was needing to see her and his daughter and son-in-law right now, she was concerned because she thought something bad was going on, we assured her he was fine and he had slept a lot during the night and had just woke up and was drinking coffee, we set her mind at ease, entered room and he was telling us he needed to see his family and we reminded him he was in the hospital, he said he knew that, he was holding the catheter tubing and was asking if the catheter was draining well, we informed him it was, he then calmed down and was ok with resting in bed and drinking his coffee, catheter is draining clear yellow urine
--- NOTE | 2023-10-03 06:05 | NUR ---
TRACY Josue in to see patient
--- NOTE | 2023-10-03 06:44 | NUR ---
bedside shift report given to MANUEL Wen
[2023-10-03 08:01] LABS: HEMATOCRIT 37.7 % (42.0-52.0); HEMOGLOBIN 12.7 g/dl (13.5-18.0)
--- NOTE | 2023-10-03 09:24 | NUR ---
Patient up to the chair with therapy, High fall risk protocol followed. Patient wanted to get dressed and therapy assisted. He is alert this am. He tolerated breakfast. Denies nausea. Right hip dressing CDI. Will monitor.
--- NOTE | 2023-10-03 12:07 | NUR ---
Patient resting in bed. His at bedside. He continues to do well. Hopeful for IPR today. Will monitor
[2023-10-03 12:12] LABS: BASO # 0.1 K/mm3 (0.0-0.2); BASO % 0.6 % (0.0-2.0); EOS # 0.2 K/mm3 (0.0-0.7); GRAN # 7.1 K/mm3 (1.4-6.5); GRAN % 69.7 % (42.2-75.2); HEMATOCRIT 37.8 % (42.0-52.0); HEMOGLOBIN 13.1 g/dl (13.5-18.0); LYMPH # 1.6 K/mm3 (1.2-3.4); LYMPH % 15.4 % (20.0-51.0); MEAN CELL VOLUME 86 fl (80.0-100.0); MEAN CORPUSCULAR HEMOGLOBIN 30 pg (27-31); MEAN CORPUSCULAR HGB CONC 35 g/dl (33.0-37.0); MEAN PLATELET VOLUME 10.1 fl (7.4-10.4); MONO # 1.2 K/mm3 (0.1-0.6); PLATELET COUNT 250 K/mm3 (130-400); RED BLOOD COUNT 4.41 M/mm3 (4.20-5.60)
[2023-10-03] MEDS ORDERED: TYLENOL 500MG500 MG PO (13:22)
[2023-10-03] MEDS ORDERED: SEROQUEL 2525 MG/TAB PO ×2 (13:22)
[2023-10-03] MEDS ORDERED: NORVASC 5MG5 MG/TAB PO (13:22)
[2023-10-03] MEDS ORDERED: OSCAL 500 TAB500 MG PO (13:23)
[2023-10-03] MEDS ORDERED: VITAMIN C500 MG PO (13:25)
[2023-10-03] MEDS ORDERED: DUO-KAPS1 CAP PO (13:25)
[2023-10-03] MEDS ORDERED: HEPARIN SOD5000 U/ML SQ (13:26)
[2023-10-03] MEDS ORDERED: ROXICODONE 55 MG/TAB PO (13:26)
--- NOTE | 2023-10-03 14:18 | NUR ---
Patient sitting up in chair, He did well with therapy. INT DC. Patient To DC to IPR room 338. Update given to nurse Daniel to resume cares
--- NOTE | 2023-10-03 15:25 | NUR ---
Web Marketing Analyst notified patient's , Charissa that IPR can accept and that patient will discharge to room 338.
== END 2023-10-03 15:01 | DRG 481 ==
LOC: COL.ER 17:23 → SURG 18:59
PROVIDERS: Nurse Practitioner Family; Nurse Practitioner Primary Care; Orthopaedic Surgery; Physician Assistant; ADMIT Internal Medicine
PROC: 0QH604Z Insertion of Internal Fixation Device into Right Upper Femur, Open Approach (ICD-10-PCS; principal; 2023-10-01 14:30)
DX: S72.001A Fracture of unspecified part of neck of right femur, initial encounter for closed fracture (principal); E87.20 Acidosis, unspecified; T83.83XA Hemorrhage due to genitourinary prosthetic devices, implants and grafts, initial encounter; W01.0XXA Fall on same level from slipping, tripping and stumbling without subsequent striking against object, initial encounter; E87.6 Hypokalemia; D51.9 Vitamin B12 deficiency anemia, unspecified; R31.0 Gross hematuria; H35.30 Unspecified macular degeneration; F41.9 Anxiety disorder, unspecified; D72.829 Elevated white blood cell count, unspecified; Y84.8 Other medical procedures as the cause of abnormal reaction of the patient, or of later complication, without mention of misadventure at the time of the procedure; E83.42 Hypomagnesemia; J98.4 Other disorders of lung; I12.9 Hypertensive chronic kidney disease with stage 1 through stage 4 chronic kidney disease, or unspecified chronic kidney disease; N18.9 Chronic kidney disease, unspecified; Z87.891 Personal history of nicotine dependence; Y93.89 Activity, other specified; Y92.89 Other specified places as the place of occurrence of the external cause; Z79.82 Long term (current) use of aspirin; Z79.899 Other long term (current) drug therapy; I25.2 Old myocardial infarction; Z86.16 Personal history of COVID-19; Z23 Encounter for immunization
CPT/HCPCS: A9284; C1713; J0665; J0690; J1100; J1644; J2250; J2270; J2310; J2405; J2704; J3010; J3475

== ENCOUNTER 2023-10-03 13:40 | Inpatient (IN) | payer MEDICARE, OTHER ==
[~2023-10-03] VITALS: Ht 182.9 cm; Wt 87.9 kg
[~2023-10-03 13:40] MED LIST changes: +COMBIGAN 0.2%-0.5 ML OU; +CYANOCOBAL1000 MCG/1 SQ; +DUO-KAPS1 CAP PO; +HEPARIN SOD5000 U/ML SQ; +NORVASC 5MG5 MG/TAB PO; +OSCAL 500 TAB500 MG PO; +ROXICODONE 55 MG/TAB PO; +SEROQUEL 2525 MG/TAB PO; +TYLENOL 500MG500 MG PO; +VITAMIN C500 MG PO; +XALATAN EYE DROPS OU
[2023-10-03 14:56] VITALS: BP 162/81; PULSE 76; TEMP 97.8
--- NOTE | 2023-10-03 14:57 | NUR ---
New pt transferred from Surgical Floor. Pt ambulated w/ RN using FWW from previous room to new room on unit. Gait steady. Pt is A/O x 4. Denies having pain/discomfort at this time despite recently ambulating. Gauze & tegaderm to R hip incision CDI. Hunter cath patent to drainage w/ dark yellow return. No hematuria noted at this time. Skin is intact. No IV access. Orientation provided to room/unit. Cellphone & glasses at the bedside. Valuable items denied. Pt had no questions. Call light in reach. Bed alarm on.
[2023-10-03 17:14] VITALS: BP_SYST 162
--- NOTE | 2023-10-03 17:14 | NUR ---
Pt sitting up in bed eating dinner independently. is at the bedside. Pt denies pain/discomfort at this time. Denies other needs. Call light in reach. Bed alarm on.
[2023-10-03 17:19] VITALS: BP 151/81; PULSE 75; TEMP 98.1
--- NOTE | 2023-10-03 17:41 | NUR ---
Stool softener offered & declined by pt.
--- NOTE | 2023-10-03 18:34 | NUR ---
Pt incontinent of small amt of stool in pants - pt unable to hold stool. Had a Lg, loose stool in toilet.
[2023-10-03 19:15] VITALS: BP_SYST 151
[2023-10-04 05:53] VITALS: BP 125/75; PULSE 74; TEMP 98.6
--- NOTE | 2023-10-04 07:26 | NUR ---
RECIEVED REPORT FROM MANUEL RAMIREZ.
[2023-10-04 07:27] VITALS: BP_SYST 125
--- NOTE | 2023-10-04 09:03 | NUR ---
PT ALERT AND ORIENTED. SITTING IN BED EATING BREAKFAST,VSS. SHIFT ASSESSMENT COMPLETE, MEDICATED PER EMAR. INDWELLING CATHETER TO DEPENDENT DRAINAGE, DRIANING YELLOW, CLEAR LIQUID. DENIES PAIN AT THIS TIME. DENIES FURTHER NEED AT THIS TIME. CALL LIGHT WITHIN REACH, BED ALARM SET.
--- NOTE | 2023-10-04 11:25 | NUR ---
Data: Patient accepted a newspaper offered to him by the Upper Tier during Upper Tier rounds. Patient told the Upper Tier about his fall. He prefers outdoor magazines to TV. Assessment: Patient is unsure of why he has to remain in the hospital. Plan of Care: Upper Tier provided supportive listening as Patient talked about the circumstances of his fall.
[2023-10-04 17:42] VITALS: BP 152/75; PULSE 76; TEMP 97.8
[2023-10-04 19:00] VITALS: BP_SYST 152
[2023-10-05 05:39] VITALS: BP 121/71; PULSE 74; TEMP 98.6
[2023-10-05 07:19] VITALS: BP_SYST 121
--- NOTE | 2023-10-05 08:00 | NUR ---
Patient is resting in bed, just finished breakfasts, alert and oriented x 4. Getting his pills whitout problems. Assessment completed, meds given. No further needs at this time. Call light mary pierce.
--- NOTE | 2023-10-05 11:17 | NUR ---
SW met with patient to complete intake. Patient provides he lives with his Charissa Burns [phone] in [facility]. Patient states that he does not utilize DME, does not have a PCP and documenation to obtain one was not provided due to patient opting out of obtaining information, pharmacy he states is [facility], and states he does not utilize services. DPOA/HC appointed is spouse. Patient plans to return home upon dc. SW will continue to follow. DC plan: home
[2023-10-05 17:14] VITALS: BP 132/74; PULSE 67; TEMP 98.3
[2023-10-05 19:04] VITALS: BP_SYST 132
[2023-10-06 05:10] VITALS: BP 131/73; PULSE 76; TEMP 98.5
[2023-10-06 06:24] LABS: BASO % 0.6 % (0.0-2.0); EOS # 0.2 K/mm3 (0.0-0.7); EOS % 2.4 % (0.0-4.0); GRAN # 4.6 K/mm3 (1.4-6.5); GRAN % 64.3 % (42.2-75.2); HEMATOCRIT 38.4 % (42.0-52.0); HEMOGLOBIN 13.2 g/dl (13.5-18.0); LYMPH # 1.6 K/mm3 (1.2-3.4); LYMPH % 22.1 % (20.0-51.0); MEAN CELL VOLUME 86 fl (80.0-100.0); MEAN CORPUSCULAR HEMOGLOBIN 30 pg (27-31); MEAN CORPUSCULAR HGB CONC 34 g/dl (33.0-37.0); MEAN PLATELET VOLUME 9.7 fl (7.4-10.4); MONO # 0.7 K/mm3 (0.1-0.6); PLATELET COUNT 262 K/mm3 (130-400); RED BLOOD COUNT 4.46 M/mm3 (4.20-5.60); REDCELL DISTRIBUTION WIDTH-CV 13.8 % (11.5-14.5)
[2023-10-06 06:43] VITALS: BP_SYST 131
--- NOTE | 2023-10-06 06:44 | NUR ---
Shift report received from night RN. No events reported overnight. Pt sleeping supine in bed w/ even & unlabored resps. Call light in reach. Bed alarm on.
[2023-10-06 06:50] LABS: CALCIUM 8.9 mg/dL (8.4-10.2); CREATININE, serum 1.92 mg/dL (0.72-1.25)
--- NOTE | 2023-10-06 10:02 | NUR ---
Pt sitting up in recliner. Denies pain/discomfort. Denies other needs. Call light in reach. Chair alarm on.
--- NOTE | 2023-10-06 14:41 | NUR ---
Has lack of transportation kept you from medical appts, meetings, work, or from getting things needed for daily living? no How often do you feel lonely or isolated from those around you? rarely Over the past 5 days, how much of the time has pain made it hard for you to sleep? occasionally Over the past 5 days, how often have you limited your participation in therapy due to pain? rarely/not at all Over the past 5 days, how often have you limited your day-to-day activities because of pain? rarely/not at all Have you had 2 or more falls in the past year or any fall with an injury? yes Did you have major surgery during the 100 days prior to admission? yes
--- NOTE | 2023-10-06 14:42 | NUR ---
Pt is back in his room after PT. Pt sitting up in recliner. Denies pain/discomfort. Denies other needs. Call light in reach. Chair alarm on.
--- NOTE | 2023-10-06 16:00 | NUR ---
Pt sitting up in recliner visiting w/ his . Pt given scheduled Tylenol approx 30 minutes ago. Denies the need for additional pain medication at his time. Call light in reach. Chair alarm on.
--- NOTE | 2023-10-06 16:00 | NUR ---
Belt Dresser met with patient and his , Charissa at bedside to check in. Patient's feels things are going well, but patient remarked the food is terrible. Patient had his bring him in a hamburger and fries which made him feel better.
[2023-10-06 17:09] VITALS: BP 129/80; PULSE 68; TEMP 97.8
[2023-10-06 19:00] VITALS: BP_SYST 129
--- NOTE | 2023-10-06 20:00 | NUR ---
PT STABLE ON ROUNDS. RESPIRATIONS EVEN AND UNLABORED. NO SIGN OF DISTRESS AT THIS TIME.
[2023-10-07 05:30] VITALS: BP 131/54; PULSE 85; TEMP 98.2
--- NOTE | 2023-10-07 06:50 | NUR ---
appears to be sleeping, bedside shift report received from MANUEL Villeda
[2023-10-07 07:00] VITALS: BP_SYST 131
--- NOTE | 2023-10-07 08:18 | NUR ---
has breakfast and tolerated well, full assessment completed, see interventions for furtherinfo, physical therapy in to work with patient
--- NOTE | 2023-10-07 09:54 | NUR ---
Dr Graham in to see jeanette
--- NOTE | 2023-10-07 10:49 | NUR ---
out of room with physical therapy for group therapy
--- NOTE | 2023-10-07 11:54 | NUR ---
returned ambulatory to room, occupational therpist continues to assist him with changing clothes
--- NOTE | 2023-10-07 11:58 | NUR ---
therapist states he had a large loose green stool while out of the room for group therapy
--- NOTE | 2023-10-07 13:00 | NUR ---
occupational therapy in to work with patient
--- NOTE | 2023-10-07 14:59 | NUR ---
Admission QIM scores were reviewed by the team. Code of 4 chosen for oral hygiene was determined by team discussion to be the most usual performance before interventions for this patient during the assessment period. Code of 4 chosen for toileting hygiene was determined by team discussion to be the most usual performance for this patient during the discharge assessment period. Code of 3 chosen for toilet transfers was determined by team discussion to be the most usual performance for this patient during the discharge assessment period.--Chiara Morillo, PD
--- NOTE | 2023-10-07 16:19 | NUR ---
up in chair playing board game with his , denies pain or needs
[2023-10-07 18:00] VITALS: BP 130/84; PULSE 75; TEMP 97.9
--- NOTE | 2023-10-07 18:55 | NUR ---
bedside shift report given to MANUEL Brown
[2023-10-07 19:20] VITALS: BP_SYST 130
--- NOTE | 2023-10-07 20:30 | NUR ---
PT GETTING READY FOR BED. A&O. DENYING PAIN OR N/V. RIGHT HIP DRESSING CDI. CASTILLO TO DD WITH YELLOW OUTPUT. DENYING FURTHER NEEDS. FALL PRECAUTIONS IN PLACE & CALL LIGHT IN REACH.
--- NOTE | 2023-10-08 00:31 | NUR ---
PT RESTING IN BED WITH UNLABORED RESP. REFUSED MIDNIGHT TYLENOL D/T NO PAIN. FALL PRECAUTIONS IN PLACE & CALL LIGHT IN REACH.
[2023-10-08 05:58] VITALS: BP 123/70; PULSE 70; TEMP 98.3
[2023-10-08 07:00] VITALS: BP_SYST 123
--- NOTE | 2023-10-08 15:03 | NUR ---
Manager Machine met with patient to review and provide copy of team conference notes. SW discussed discharge date of Friday, which patient was agreeable to. Patient is also agreeable to recommendation for Home Health services. SW provided Medicare.gov list of HH agencies and patient stated he has used [facility] in the past and had no issues with them. KADEN contacted patient's , Charissa to provide the above update. Charissa is agreeable to the plan and would like to use [facility]. KADEN discussed a family meeting and Charissa would be interested in this. Charissa plans to talk with her children migdalia about a family meeting tomorrow morning at 0930.
[2023-10-08 17:15] VITALS: BP 140/76; PULSE 72; TEMP 98.2
[2023-10-08 18:30] VITALS: BP_SYST 140
--- NOTE | 2023-10-08 20:00 | NUR ---
ALERT AND ORIENTED. RESTING IN BED. DENIES PAIN. SDEE COMPLETED SHIFT ASSESSMENT. CALL LIGHT IN REACH. BED ALARM SET.
[2023-10-09 06:05] VITALS: BP 127/79; PULSE 80; TEMP 98.4
--- NOTE | 2023-10-09 06:59 | NUR ---
BEDSIDE SHIFT REPORT GIVEN TO RICHARD CARNES RN. NO QUESTIONS.
--- NOTE | 2023-10-09 07:00 | NUR ---
BEDSIDE SHIFT REPORT GIVNE TO RICHARD ROBLES RN. NO QUESTIONS.
[2023-10-09 07:23] VITALS: BP_SYST 127
--- NOTE | 2023-10-09 10:02 | NUR ---
CASTILLO CATHETER DISCONTINUED PER ORDERS. 10ML SALINE DEFLATED FROM [place]. PT TOLERATED WELL. OUTPUT 300ML CLEAR YELLOW URINE.
--- NOTE | 2023-10-09 12:01 | NUR ---
Will lack of transportation kept you from medical appts, meetings, work, or from getting things needed for daily living? no How often do you feel lonely or isolated from those around you? never Over the past 5 days, how much of the time has pain made it hard for you to sleep? rarely/not at all Over the past 5 days, how often have you limited your participation in therapy due to pain? rarely/not at all Over the past 5 days, how often have you limited your day-to-day activities because of pain? rarely/not at all
--- NOTE | 2023-10-09 16:36 | NUR ---
Winch Derrick Operator attended family meeting which included patient's , Charissa at bedside. Chiara [facility] Director opened meeting followed up by report from IPR Physician. PT/OT/ST provided report on patient's progress and recommendations. Patient will have [facility] Health [facility]. Patient will also need a front wheeled walker. SW sent referral and order to [facility] via secure email. SW met with patient later to present and review IM. Patient verbalized understanding and provided signature. SW placed form in chart and provided copy to patient.
[2023-10-09 17:10] VITALS: BP 133/73; PULSE 97; TEMP 98.1
--- NOTE | 2023-10-09 17:59 | NUR ---
PT DOING WELL TODAY, NO COMPLAINTS OF PAIN OR DISCOMFORT. CASTILLO WAS DISCONTINUED THIS MORNING, PT HAS BEEN ABLE TO URINATE CLEAR YELLOW URINE, NO PAIN WHILE URINATING. R HIP INCISIONS WITH GAUZE AND TEGADERM, CLEAN DRY INTACT. PT IS EXCITED TO BE GOING HOME IN THE MORNING.
[2023-10-09 19:00] VITALS: BP_SYST 133
--- NOTE | 2023-10-09 20:00 | NUR ---
BED ALARM SOUNDING. PT GOT UP OUT OF BED TO GO TO THE BR. PT CUSSING ABOUT THE ALARM. PROVIDED RATIONALE AND OUR POLICY. GRUMBLED. VOIDING W/O DIFFICULTY. BACK TO BED. REFUSED TO USE WALKER. CALL LIGHT IN REACH. BED ALARM SET. ENC PT TO CALL FOR ASSIST.
--- NOTE | 2023-10-09 22:10 | NUR ---
PT AGAIN GOT UP WITHOUT USING CALL LIGHT. BED ALARM SOUNDING. PT MAD. AGAIN REVIEWED RATIONALE FOR SAFETY PRECAUTIONS. CALL LIGHT IN REACH. BED ALARM BACK ON AFTERRETURNED TO BED.
[2023-10-10 05:19] VITALS: BP 137/73; PULSE 74; TEMP 97.6
--- NOTE | 2023-10-10 06:16 | NUR ---
PT UP IMPLULSIVELY SEVERAL TIMES TONIGHT. ALITTLE CONFUSED. NO NEEDS THIS AM.
[2023-10-10 07:02] VITALS: BP_SYST 137
--- NOTE | 2023-10-10 07:03 | NUR ---
Shift report received from night RN. No events reported overnight. Pt sleeping supine in bed w/ even & unlabored resps. Call light in reach. Fall precautions in place.
--- NOTE | 2023-10-10 09:38 | NUR ---
Pt resting supine in bed. Reports R hip soreness but denies the need for pain medication at this time. R hip gauze & tegaderm removed today (POD #8) per order to remove on POD #7. Incision well healed w/o drainage. Incision reinforced w/ steristrips. Pt denies any other needs at this time. Call light in reach. Bed alarm on.
[2023-10-10] MEDS ORDERED: NORVASC 5MG5 MG/TAB PO (10:02)
[2023-10-10] MEDS ORDERED: TYLENOL 500MG500 MG PO (10:02)
[2023-10-10] MEDS ORDERED: ASPI325T6 PO (10:04)
--- NOTE | 2023-10-10 12:29 | NUR ---
Inspector Electromechanical contacted Donte at [facility] and faxed discharge orders. KADEN spoke with Shyla at [facility] who advised they cannot provide a front wheeled walker through insurance as they supplied a rollator previously. KADEN updated patient's , Charissa who advised they will purchase one online.
--- NOTE | 2023-10-10 14:31 | NUR ---
DC summary reviewed w/ the pt & this . They had no further questions. Valuable items denied. Pt escorted off unit via wheelchair by CONTINUOUS PROCESS MACHINE OPERATOR at approx 1350.
--- NOTE | 2023-10-10 14:36 | NUR ---
Discharge QIM scores were reviewed by the team. Code of 6 chosen for lower body dressing was determined by team discussion to be the most usual performance for this patient during the discharge assessment period. Code of 6 chosen for walking 10 feet was determined by team discussion to be the most usual performance for this patient during the discharge assessment period. Code of 6 chosen for walking 50 feet w/ 2 turns was determined by team discussion to be the most usual performance before interventions for this patient during the discharge assessment period.--Chiara Morillo, PD
== END 2023-10-10 13:50 | disposition home health service (06) | DRG 560 ==
PROVIDERS: Physician Assistant; ADMIT Physical Medicine & Rehabilitation Sports Medicine
DX: S72.001D Fracture of unspecified part of neck of right femur, subsequent encounter for closed fracture with routine healing (principal); F05 Delirium due to known physiological condition; K50.90 Crohn's disease, unspecified, without complications; R31.0 Gross hematuria; R26.89 Other abnormalities of gait and mobility; I25.2 Old myocardial infarction; R33.9 Retention of urine, unspecified; N18.9 Chronic kidney disease, unspecified; F41.9 Anxiety disorder, unspecified; I12.9 Hypertensive chronic kidney disease with stage 1 through stage 4 chronic kidney disease, or unspecified chronic kidney disease; D72.829 Elevated white blood cell count, unspecified; E87.6 Hypokalemia; E83.42 Hypomagnesemia; K59.00 Constipation, unspecified; R91.8 Other nonspecific abnormal finding of lung field; Z86.16 Personal history of COVID-19; Z79.899 Other long term (current) drug therapy; Z79.891 Long term (current) use of opiate analgesic; W19.XXXD Unspecified fall, subsequent encounter; Z74.09 Other reduced mobility
CPT/HCPCS: J1644